=== PATIENT | female | born 1935 | race Hispanic/Latino ===

== ENCOUNTER 2022-07-31 21:40 | Inpatient (IN) | payer MEDICARE ==
[~2022-07-31] VITALS: Ht 149.9 cm; Wt 46.3 kg
[~2022-07-31 21:40] MED LIST: AMLODIPINE BESYL5 MG PO; ASPIRIN325 MG PO; CLOPIDOGREL75 MG PO; FOLIC ACID1 MG PO; ISOSORBIDE MONO60 MG PO; LEVOTHYROXINE100 MCG PO; LOSARTAN POTASS50 MG PO; LOVASTATIN20 MG PO
[2022-07-31] MEDS ORDERED: SODIUM CHLORIDE 0.9% 1000ML 1,000 ML IV ONE ×2 (22:00)
[2022-07-31 22:18] LABS: EOSINOPHILS # (AUTO) 0.2 (0.0-0.4); EOSINOPHILS % 0.7 % (0.0-6.0); HEMATOCRIT 28.1 % (34.2-44.1); HEMOGLOBIN 8.6 g/dL (12.0-16.0); LYMPHOCYTES # (AUTO) 3.8 (1.0-3.2); LYMPHOCYTES % 17.9 % (18.0-39.1); MEAN CORPUSCULAR HGB CONC 30.6 g/dL (31-35); MEAN CORPUSCULAR VOLUME 94.6 fL (81-99); MONOCYTES # (AUTO) 0.8 (0.2-0.8); MONOCYTES % 3.9 % (4.4-11.3); NEUTROPHILS # (AUTO) 16.3 (2.1-6.9); NEUTROPHILS % 76.8 % (38.7-80.0); PLATELET COUNT 373 x10e3/uL (140-360); RED BLOOD COUNT 2.97 x10e6/uL (3.6-5.1); RED CELL DISTRIBUTION WIDTH 15.5 % (11.7-14.4)
[2022-07-31 22:22] LABS: CLARITY,URINE CLEAR (CLEAR); COLOR,URINE YELLOW (YELLOW); KETONES,URINE NEGATIVE (NEGATIVE); LEUKOCYTE ESTERASE ,URINE NEGATIVE (NEGATIVE); NITRITE,URINE NEGATIVE (NEGATIVE); PROTEIN,URINE DIPSTICK NEGATIVE (NEGATIVE); URINE UROBILINOGEN 0.2 mg/dL (0.2 - 1)
[2022-07-31 22:25] LABS: BACTERIA,URINE FEW /HPF; EPITHELIAL CELLS,URINE RARE /LPF; RBC,URINE 0-5 /HPF (0-5); WBC,URINE (MAN) 0-5 /HPF (0-5)
[2022-07-31] MEDS ORDERED: SODIUM CHLORIDE 0.9% 250ML 250 ML ONE (22:25)
[2022-07-31] MEDS ORDERED: CEFTRIAXONE 1 GM VIAL ONE (22:25)
[2022-07-31 22:36] LABS: ALBUMIN 2.2 g/dL (3.5-5.0); ALBUMIN/GLOBULIN RATIO 0.7 (0.8-2.0); ANION GAP 17.3 mmol/L (8-16); CALCIUM 7.6 mg/dL (8.4-10.2); CREATININE, SERUM 0.64 mg/dL (0.57-1.11); POTASSIUM 3.3 mmol/L (3.5-5.1)
[2022-07-31 22:43] LABS: CREATINE KINASE MB 1.2 ng/mL (0-5.0)
[2022-07-31] MEDS ORDERED: KCL 20MEQ/.9 SOD CHL 1,000 ML IV ONE (23:15)
[2022-07-31 23:42] LABS: HEMATOCRIT 18.4 % (34.2-44.1); HEMOGLOBIN 5.7 g/dL (12.0-16.0)
[2022-07-31] MEDS ORDERED: SODIUM CHLORIDE 0.9% 250ML 250 ML IV ONE (23:45)
[2022-07-31] MEDS ORDERED: FUROSEMIDE INJ 10 MG/ML 2 ML VIAL IV PRN (23:45)
[2022-08-01] VITALS (38 sets, daily range): BP systolic 80–131; BP diastolic 44–94
[2022-08-01] MEDS ORDERED: ONDANSETRON HCL INJ 2MG/ML 2ML 2 MG/ML VIAL IV PRN (00:15)
[2022-08-01] MEDS: NOREPINEPHRINE 8 MG/D5W 250 ML 250 ML IV SCH (00:15)
[2022-08-01] MEDS ORDERED: NOREPINEPHRINE 8 MG/D5W 250 ML 250 ML ONE (00:21)
[2022-08-01] MEDS ORDERED: SODIUM CHLORIDE 0.9% 250ML 250 ML ONE ×3 (00:55→16:48)
[2022-08-01] MEDS ORDERED: ACETAMINOPHEN 325 MG TAB PO PRN (03:45)
[2022-08-01] MEDS ORDERED: MELATONIN 3 MG TAB PO PRN (03:45)
[2022-08-01] MEDS ORDERED: MAGNESIUM/ALUMINUM/SIMETHICONE 30 ML UDC PO PRN (03:45)
[2022-08-01] MEDS ORDERED: HYDRALAZINE HCL 20 MG/ML VIAL IV PRN (03:45)
[2022-08-01] MEDS ORDERED: GUAIFENESIN/DEXTROMETHORPHAN LIQD 5 ML UDC PO PRN (03:45)
[2022-08-01] MEDS: MULTIVITAMINS/MINERALS TAB PO SCH (09:21)
[2022-08-01] MEDS: FOLIC ACID 1 MG TAB PO SCH (09:21)
[2022-08-01] MEDS: LEVOTHYROXINE SODIUM 100 MCG TAB PO SCH (09:27)
[2022-08-01] MEDS: LACTATED RINGER'S 1,000 ML INJ SCH ×2 (12:18→21:32)
[2022-08-01 13:50] LABS: INR 1.23; PARTIAL THROMBOPLASTIN TIME 27.3 seconds (23.8-35.5); PROTHROMBIN TIME 16.6 seconds (11.9-14.5)
[2022-08-01 14:17] LABS: BASOPHILS % 0.1 % (0.0-1.0); HEMATOCRIT 36.4 % (34.2-44.1); HEMOGLOBIN 11.7 g/dL (12.0-16.0); LYMPHOCYTES # (AUTO) 0.6 (1.0-3.2); LYMPHOCYTES % 2.4 % (18.0-39.1); MEAN CORPUSCULAR HEMOGLOBIN 28.5 pg (28-32); MEAN CORPUSCULAR HGB CONC 32.1 g/dL (31-35); MEAN CORPUSCULAR VOLUME 88.8 fL (81-99); MONOCYTES # (AUTO) 0.9 (0.2-0.8); MONOCYTES % 3.7 % (4.4-11.3); NEUTROPHILS # (AUTO) 22.7 (2.1-6.9); NEUTROPHILS % 93.1 % (38.7-80.0); PLATELET COUNT 156 x10e3/uL (140-360); RED CELL DISTRIBUTION WIDTH 15.7 % (11.7-14.4)
[2022-08-01 14:32] LABS: ALBUMIN 2.2 g/dL (3.5-5.0); ANION GAP 14.4 mmol/L (8-16); CALCIUM 7.3 mg/dL (8.4-10.2); CREATININE, SERUM 0.73 mg/dL (0.57-1.11); POTASSIUM 4.4 mmol/L (3.5-5.1)
[2022-08-01 14:47] LABS: MAGNESIUM 1.4 MG/DL (1.3-2.1)
[2022-08-01 14:58] LABS: CREATINE KINASE MB 3.1 ng/mL (0-5.0)
[2022-08-01 15:08] LABS: FERRITIN 354.05 ng/mL (4.63-204.00); THYROID STIMULATING HORMONE 14.01 uIU/mL (0.350-4.940)
[2022-08-02] VITALS (106 sets, daily range): BP systolic 58–148; BP diastolic 28–109
[2022-08-02] MEDS: NOREPINEPHRINE 8 MG/D5W 250 ML 250 ML IV SCH ×3 (00:15→17:12)
[2022-08-02] MEDS ORDERED: Morphine 2mg Syringe 2 MG/ML SYR IV PRN (00:45)
[2022-08-02] MEDS ORDERED: METOCLOPRAMIDE HCL 10 MG TAB PO ONE (02:00)
[2022-08-02 02:15] LABS: INR 1.07; PROTHROMBIN TIME 14.9 seconds (11.9-14.5)
[2022-08-02] MEDS ORDERED: METOCLOPRAMIDE HCL 10 MG/2ML VIAL IV ONE (02:15)
[2022-08-02 04:34] LABS: ABG HCO3 19 mmol/L (22-26); ABG PCO2 32 mmHg (35-45); ABG PO2 107 mmHg (80-105); ABG TCO2 20
[2022-08-02] MEDS: METOCLOPRAMIDE HCL 10 MG/2ML VIAL IV SCH ×3 (05:53→17:37)
[2022-08-02 06:32] LABS: BASOPHILS # (AUTO) 0.1 (0.0-0.1); BASOPHILS % 0.2 % (0.0-1.0); HEMATOCRIT 27.4 % (34.2-44.1); HEMOGLOBIN 8.9 g/dL (12.0-16.0); LYMPHOCYTES # (AUTO) 0.7 (1.0-3.2); LYMPHOCYTES % 2.2 % (18.0-39.1); MEAN CORPUSCULAR HGB CONC 32.5 g/dL (31-35); MEAN CORPUSCULAR VOLUME 89.3 fL (81-99); MONOCYTES # (AUTO) 0.9 (0.2-0.8); NEUTROPHILS % 93.7 % (38.7-80.0); PLATELET COUNT 131 x10e3/uL (140-360); RED BLOOD COUNT 3.07 x10e6/uL (3.6-5.1); RED CELL DISTRIBUTION WIDTH 16.6 % (11.7-14.4)
[2022-08-02 07:02] LABS: ALBUMIN 2.3 g/dL (3.5-5.0); ALBUMIN/GLOBULIN RATIO 0.9 (0.8-2.0); ANION GAP 17.2 mmol/L (8-16); CALCIUM 8.3 mg/dL (8.4-10.2); CREATININE, SERUM 0.71 mg/dL (0.57-1.11); POTASSIUM 4.2 mmol/L (3.5-5.1)
[2022-08-02 07:19] LABS: ANISOCYTOSIS SLIGHT; BAND NEUTROPHILS % (MANUAL) 7 %; LYMPHOCYTES % (MANUAL) 4 % (19-48); METAMYELOCYTES % (MANUAL) 4 % (0-0); MYELOCYTES % (MANUAL) 2 % (0-0); NEUTROPHILS % (MANUAL) 83 % (40-74); PLATELET ESTIMATE SLIGHTLY DECREASED; PLATELET MORPHOLOGY COMMENT NORMAL; POIKILOCYTOSIS SLIGHT; RBC MORPHOLOGY COMMENT NORMAL
[2022-08-02] MEDS: LACTATED RINGER'S 1,000 ML INJ SCH ×2 (07:21→17:37)
[2022-08-02 07:25] LABS: CREATINE KINASE MB 3.7 ng/mL (0-5.0)
[2022-08-02] MEDS ORDERED: METOCLOPRAMIDE HCL 10 MG TAB PO SCH (07:30)
[2022-08-02] MEDS: LEVOTHYROXINE SODIUM 100 MCG TAB PO SCH (07:43)
[2022-08-02] MEDS: FOLIC ACID 1 MG TAB PO SCH (09:00)
[2022-08-02] MEDS: MULTIVITAMINS/MINERALS TAB PO SCH (09:00)
[2022-08-02] MEDS ORDERED: IOPAMIDOL 370 MG/ML 100 ML INFUS..BTL INJ ONE (11:19)
[2022-08-02] MEDS ORDERED: VASOPRESSIN INJ 20 UNIT/ML VIAL ONE (20:35)
[2022-08-02] MEDS ORDERED: DEXTROSE 5% 50ML 50 ML IV ONE (20:36)
[2022-08-02] MEDS ORDERED: SODIUM CHLORIDE 0.9% 500ML 500 ML ONE (20:38)
[2022-08-02] MEDS ORDERED: VASOPRESSIN 60 UNIT in DEXTROSE 5% 50ML 57 ML IV PRN (20:45)
[2022-08-02] MEDS ORDERED: SODIUM CHLORIDE 0.9% 1000ML 1,000 ML ONE (20:52)
[2022-08-02] MEDS ORDERED: DEXTROSE 50% SYRINGE 50 ML IV PRN (21:30)
[2022-08-02] MEDS: SODIUM BICARBONATE 8.4% 150 ML in DEXTROSE 5% 1,000 ML IV SCH (21:30)
[2022-08-02] MEDS ORDERED: DEXMEDETOMIDINE 400MCG/NS100ML 100 ML IV PRN (21:30)
[2022-08-02] MEDS ORDERED: SODIUM BICARBONATE 8.4% 50 ML VIAL IV STA ×2 (21:31→21:58)
[2022-08-02] MEDS ORDERED: SODIUM BICARBONATE 8.4% SYRING 50 ML ONE ×2 (21:37→22:42)
[2022-08-02 21:39] LABS: BASOPHILS # (AUTO) 0.1 (0.0-0.1); BASOPHILS % 0.3 % (0.0-1.0); EOSINOPHILS # (AUTO) 0.1 (0.0-0.4); EOSINOPHILS % 0.4 % (0.0-6.0); HEMATOCRIT 26.2 % (34.2-44.1); HEMOGLOBIN 7.7 g/dL (12.0-16.0); LYMPHOCYTES # (AUTO) 0.8 (1.0-3.2); MEAN CORPUSCULAR HEMOGLOBIN 28.6 pg (28-32); MEAN CORPUSCULAR HGB CONC 29.4 g/dL (31-35); MEAN CORPUSCULAR VOLUME 97.4 fL (81-99); MONOCYTES # (AUTO) 0.8 (0.2-0.8); MONOCYTES % 3.2 % (4.4-11.3); NEUTROPHILS # (AUTO) 23.2 (2.1-6.9); NEUTROPHILS % 91.5 % (38.7-80.0); PLATELET COUNT 104 x10e3/uL (140-360); RED BLOOD COUNT 2.69 x10e6/uL (3.6-5.1); RED CELL DISTRIBUTION WIDTH 18.2 % (11.7-14.4)
[2022-08-02 21:43] LABS: ABG PCO2 34 mmHg (35-45); ABG PH 7.12 (7.35-7.45)
[2022-08-02] MEDS ORDERED: SODIUM BICARBONATE 8.4% SYRING 150 ML ONE (21:43)
[2022-08-02 21:44] LABS: ABG HCO3 11 mmol/L (22-26); ABG PO2 292 mmHg (80-105); ABG TCO2 12
[2022-08-02] MEDS ORDERED: DEXTROSE 5% 1,000 ML IV ONE (21:44)
[2022-08-02 21:57] LABS: ALBUMIN 1.8 g/dL (3.5-5.0); ALBUMIN/GLOBULIN RATIO 0.8 (0.8-2.0); ANION GAP 24.8 mmol/L (8-16); CALCIUM 7.4 mg/dL (8.4-10.2); CREATININE, SERUM 1.09 mg/dL (0.57-1.11)
[2022-08-02 22:08] LABS: POTASSIUM 6.8 mmol/L (3.5-5.1)
[2022-08-02] MEDS ORDERED: SODIUM BICARBONATE 8.4% INJ 50 ML SYR IV STA (22:29)
[2022-08-02] MEDS ORDERED: PHENYLEPHRINE 10MG/ML VIAL 40 MG in DEXTROSE 5% 250ML 246 ML IV SCH (22:30)
[2022-08-02] MEDS ORDERED: PHENYLEPHRINE HCL IN 0.9% NACL 250 ML IV ONE (22:41)
[2022-08-02] MEDS ORDERED: ALBUTEROL SULF 0.083% NEB SOLN 3 ML NEB NEB STA (23:33)
[2022-08-02] MEDS ORDERED: CALCIUM GLUC 1 G/50 ML NACL 50 ML IV ONE (23:45)
[2022-08-02] MEDS ORDERED: SODIUM CHLORIDE 0.9% 250ML 250 ML IV ONE (23:45)
[2022-08-02] MEDS ORDERED: SOD POLYSTYRENE SULFONATE SUSP 15 GM/60 ML BTL PR ONE (23:45)
[2022-08-03] VITALS (32 sets, daily range): BP systolic 7–156; BP diastolic -3–116
[2022-08-03] MEDS ORDERED: PHENYLEPHRINE 10MG/ML VIAL 40 MG in DEXTROSE 5% 250ML 246 ML IV PRN ×2
[2022-08-03] MEDS: LINEZOLID 600 MG/D5W 300ML 300 ML IV SCH ×2 (00:12→09:00)
[2022-08-03] MEDS: METOCLOPRAMIDE HCL 10 MG/2ML VIAL IV SCH ×3 (01:17→12:00)
[2022-08-03] MEDS ORDERED: BISACODYL 10 MG SUPP PR ONE (03:15)
[2022-08-03] MEDS ORDERED: SOD POLYSTYRENE SULFONATE SUSP 15 GM/60 ML BTL PR ONE (04:00)
[2022-08-03] MEDS ORDERED: CALCIUM GLUC 1 G/50 ML NACL 50 ML IV ONE (04:00)
[2022-08-03] MEDS ORDERED: SODIUM BICARBONATE 8.4% SYRING 150 ML ONE (05:12)
[2022-08-03] MEDS ORDERED: DEXTROSE 5% 1,000 ML IV ONE (05:12)
[2022-08-03] MEDS ORDERED: LIDOCAINE HCL 2% LOCAL INJ 5 ML SDV VIAL INJ ONE (05:41)
[2022-08-03] MEDS: SODIUM BICARBONATE 8.4% 150 ML in DEXTROSE 5% 1,000 ML IV SCH ×2 (06:42→15:54)
[2022-08-03] MEDS: INSULIN REGULAR, HUMAN 100 UNIT/1 ML SQ SCH ×3 (07:30→16:16)
[2022-08-03] MEDS: LEVOTHYROXINE SODIUM 100 MCG TAB PO SCH (07:30)
[2022-08-03 07:43] LABS: BASOPHILS % 0.1 % (0.0-1.0); LYMPHOCYTES # (AUTO) 1.6 (1.0-3.2); LYMPHOCYTES % 11.4 % (18.0-39.1); MEAN CORPUSCULAR HEMOGLOBIN 28.7 pg (28-32); MEAN CORPUSCULAR HGB CONC 27.6 g/dL (31-35); MEAN CORPUSCULAR VOLUME 104.2 fL (81-99); MONOCYTES # (AUTO) 0.6 (0.2-0.8); NEUTROPHILS # (AUTO) 11.5 (2.1-6.9); PLATELET COUNT 66 x10e3/uL (140-360); RED BLOOD COUNT 1.67 x10e6/uL (3.6-5.1); RED CELL DISTRIBUTION WIDTH 18.7 % (11.7-14.4)
[2022-08-03] MEDS ORDERED: SODIUM CHLORIDE 0.9% 250ML 250 ML IV ONE (08:00)
[2022-08-03 08:14] LABS: ALBUMIN 1.3 g/dL (3.5-5.0); ALBUMIN/GLOBULIN RATIO 0.8 (0.8-2.0); ANION GAP 39.7 mmol/L (8-16); CALCIUM 8.2 mg/dL (8.4-10.2); CREATININE, SERUM 1.52 mg/dL (0.57-1.11)
[2022-08-03 08:16] LABS: HEMATOCRIT 17.4 % (34.2-44.1); HEMOGLOBIN 4.8 g/dL (12.0-16.0)
[2022-08-03 08:20] LABS: POTASSIUM 8.7 mmol/L (3.5-5.1)
[2022-08-03] MEDS: FOLIC ACID 1 MG TAB PO SCH (09:00)
[2022-08-03] MEDS: MULTIVITAMINS/MINERALS TAB PO SCH (09:00)
[2022-08-03 09:02] LABS: ABG HCO3 9 mmol/L (22-26); ABG PCO2 25 mmHg (35-45); ABG PH 7.17 (7.35-7.45); ABG PO2 519 mmHg (80-105); ABG TCO2 10
[2022-08-03 09:22] LABS: BAND NEUTROPHILS % (MANUAL) 7 %; LYMPHOCYTES % (MANUAL) 11 % (19-48); METAMYELOCYTES % (MANUAL) 16 % (0-0); MONOCYTES % (MANUAL) 2 % (3.4-9.0); MYELOCYTES % (MANUAL) 12 % (0-0); NEUTROPHILS % (MANUAL) 52 % (40-74)
[2022-08-03 09:23] LABS: ANISOCYTOSIS SLIGHT; PLATELET ESTIMATE MODERATELY DECREASED; PLATELET MORPHOLOGY COMMENT NORMAL; POIKILOCYTOSIS SLIGHT; RBC MORPHOLOGY COMMENT NORMAL
[2022-08-03] MEDS ORDERED: ETOMIDATE 40 MG/ 20ML VIAL IV ONE (11:20)
[2022-08-03] MEDS ORDERED: SODIUM BICARBONATE 8.4% INJ 50 ML SYR ONE (14:05)
[2022-08-03] MEDS ORDERED: EPINEPHRINE HCL SYRINGE ONE (14:05)
== END 2022-08-03 16:42 | disposition expired | DRG 377 ==
LOC: ER 21:53 → ERHOLD 08-01 00:10 → ICU 08-01 01:25
PROVIDERS: ADMIT Internal Medicine; ATTEND Internal Medicine
PROC: 02HV33Z Insertion of Infusion Device into Superior Vena Cava, Percutaneous Approach (ICD-10-PCS; 2022-08-01)
PROC: 3E043XZ Introduction of Vasopressor into Central Vein, Percutaneous Approach (ICD-10-PCS; 2022-08-01)
PROC: 30243N1 Transfusion of Nonautologous Red Blood Cells into Central Vein, Percutaneous Approach (ICD-10-PCS; 2022-08-01)
PROC: 30243L1 Transfusion of Nonautologous Fresh Plasma into Central Vein, Percutaneous Approach (ICD-10-PCS; 2022-08-01)
PROC: 30243K1 Transfusion of Nonautologous Frozen Plasma into Central Vein, Percutaneous Approach (ICD-10-PCS; 2022-08-01)
PROC: 5A1935Z Respiratory Ventilation, Less than 24 Consecutive Hours (ICD-10-PCS; principal; 2022-08-02)
PROC: 0BH17EZ Insertion of Endotracheal Airway into Trachea, Via Natural or Artificial Opening (ICD-10-PCS; 2022-08-02)
PROC: 03HY32Z Insertion of Monitoring Device into Upper Artery, Percutaneous Approach (ICD-10-PCS; 2022-08-02)
PROC: 4A133B1 Monitoring of Arterial Pressure, Peripheral, Percutaneous Approach (ICD-10-PCS; 2022-08-02)
PROC: 4A133J1 Monitoring of Arterial Pulse, Peripheral, Percutaneous Approach (ICD-10-PCS; 2022-08-02)
PROC: 02HV33Z Insertion of Infusion Device into Superior Vena Cava, Percutaneous Approach (ICD-10-PCS; 2022-08-03)
PROC: B548ZZA Ultrasonography of Superior Vena Cava, Guidance (ICD-10-PCS; 2022-08-03)
PROC: 5A12012 Performance of Cardiac Output, Single, Manual (ICD-10-PCS; 2022-08-03)
DX: K92.0 Hematemesis (principal); E43 Unspecified severe protein-calorie malnutrition; G93.41 Metabolic encephalopathy; J96.21 Acute and chronic respiratory failure with hypoxia; D62 Acute posthemorrhagic anemia; J44.1 Chronic obstructive pulmonary disease with (acute) exacerbation; R64 Cachexia; E87.1 Hypo-osmolality and hyponatremia; I50.22 Chronic systolic (congestive) heart failure; N17.9 Acute kidney failure, unspecified; E87.21 Acute metabolic acidosis; R57.1 Hypovolemic shock; R57.8 Other shock; E87.6 Hypokalemia; I11.0 Hypertensive heart disease with heart failure; E88.09 Other disorders of plasma-protein metabolism, not elsewhere classified; E87.5 Hyperkalemia; R62.7 Adult failure to thrive; Z99.81 Dependence on supplemental oxygen; E80.6 Other disorders of bilirubin metabolism; Z68.20 Body mass index [BMI] 20.0-20.9, adult; R68.0 Hypothermia, not associated with low environmental temperature; E03.9 Hypothyroidism, unspecified; I25.10 Atherosclerotic heart disease of native coronary artery without angina pectoris; K21.9 Gastro-esophageal reflux disease without esophagitis; E78.5 Hyperlipidemia, unspecified; Z95.1 Presence of aortocoronary bypass graft; Z90.49 Acquired absence of other specified parts of digestive tract; Z87.891 Personal history of nicotine dependence; Z20.822 Contact with and (suspected) exposure to COVID-19
CPT/HCPCS: 31500; 36415; 36569; 36600; 51700; 71045; 74018; 74177; 80053; 81001; 82550; 82553; 82607; 82728; 82746; 82805; 82948; 83540; 83605; 83735; 83880; 84132; 84443; 84466; 84484; 85014; 85018; 85025; 85610; 85730; 86850; 86900; 86920; 87040; 87086; 87400; 92950; 93005; 93306; 94002; 94003; 94640; 94799; 96361; 96365; 99251; 99284; J0171; J0456; J0692; J0696; J2001; J2020; J2185; J2270; J2370; J2405; J2765; J7030; J7040; J7050; J7070; J7121; J7799; P9016; P9017; Q9967